=== PATIENT | male | born 1955 ===

== ENCOUNTER 2025-02-19 11:32 | Day surgery (SDC) | payer OTHER ==
[~2025-02-19] VITALS: Ht 167.6 cm; Wt 64.5 kg
[~2025-02-19 11:32] MED LIST: Balanced Salt Epinephrine Irrigation Solution 500 mL IR SCH; GLIP10; METF500 PO; Moxifloxacin HCL 0.5 MG/0.1 ML 0.4MLSYR LEFTEYE SCH; Ondansetron 4 MG SoluTab MM PRN; PHENYLEPHRINE\\TROPICAMIDE\\TETRACAINE OPHTHALMIC DILATING SOLN LEFTEYE PRN; PRAV20; Povidone-Iodine 450 DROP/30 ML Solution LEFTEYE SCH; Povidone-Iodine 450 DROP/30 ML Solution ONE; Tetracaine HCl/Pf 0.5% Opth Soln 4 ml ONE; Triamcinolone Inj Susp 40 MG / ML 1ML Vial INJ SCH; Triamcinolone Inj Susp 40 MG / ML 1ML Vial ONE
[2025-02-19] MEDS ORDERED: Prinivil10 MG PO (13:00)
[2025-02-19] MEDS ORDERED: Midazolam HCl 1MG / ML 2ML Vial ONE (13:15)
[2025-02-19] MEDS ORDERED: FentaNYL Citrate 50 MCG/ML 2 ML Injection ONE (13:15)
[2025-02-19 13:45] VITALS: BP 150/75
--- NOTE | 2025-02-19 14:13 | NUR ---
02/19/25 1413 Saurabh Aviles PT DENIES PAIN OR NAUSEA. SURGICAL PATHOLOGIST ON PHONE DURING STEP DOWN TIME. SURGICAL PATHOLOGIST RELAYS VERBAL D/C INSTRUCTIONS. PT HAS NO QUESTIONS AND IS AGREEABLE TO D/C HOME WITH BROTHER IN LAW.
== END 2025-02-19 14:11 | disposition home or self-care (01) ==
LOC: ORSCSDS 11:32
PROVIDERS: Ophthalmology
PROC: 08RK3JZ Replacement of Left Lens with Synthetic Substitute, Percutaneous Approach (ICD-10-PCS; principal; 2025-02-19 13:30)
DX: E11.36 Type 2 diabetes mellitus with diabetic cataract (principal); H25.812 Combined forms of age-related cataract, left eye; I10 Essential (primary) hypertension; E78.00 Pure hypercholesterolemia, unspecified; Z79.84 Long term (current) use of oral hypoglycemic drugs; Z79.899 Other long term (current) drug therapy
CPT/HCPCS: 82947; A9270; J2250; J3010; J3301; J7120; V2632